=== PATIENT | male | born 1960 | race Caucasian/White ===

== ENCOUNTER 2023-10-10 17:37 | Outpatient (RCR) | payer OTHER, SELFPAY | END 2023-10-10 23:59 | disposition home or self-care (01) | LOC: RPT 17:37 | PROVIDERS: ATTENDING PHYSICIAN Orthopaedic Surgery; FAMILY PHYSICIAN Family Medicine | DX: Z47.1 Aftercare following joint replacement surgery (principal); Z73.6 Limitation of activities due to disability; R26.2 Difficulty in walking, not elsewhere classified; M62.81 Muscle weakness (generalized); M25.551 Pain in right hip; R26.89 Other abnormalities of gait and mobility; Z96.641 Presence of right artificial hip joint | CPT/HCPCS: 97010; 97110; 97112; 97116; 97140; 97162; 97530 ==

== ENCOUNTER 2023-11-08 06:44 | Outpatient (RCR) | payer OTHER, SELFPAY | END 2023-11-08 23:59 | disposition home or self-care (01) | LOC: RPT 06:44 | PROVIDERS: ATTENDING PHYSICIAN Orthopaedic Surgery; FAMILY PHYSICIAN Family Medicine | DX: Z47.1 Aftercare following joint replacement surgery (principal); Z73.6 Limitation of activities due to disability; R26.2 Difficulty in walking, not elsewhere classified; M62.81 Muscle weakness (generalized); M25.551 Pain in right hip; R26.89 Other abnormalities of gait and mobility; Z96.641 Presence of right artificial hip joint | CPT/HCPCS: 97110; 97112; 97530 ==

== ENCOUNTER 2023-11-27 14:07 | Outpatient (RCR) | payer OTHER, SELFPAY | END 2023-11-28 15:43 | disposition home or self-care (01) | LOC: RPT 14:07 | PROVIDERS: ATTENDING PHYSICIAN Orthopaedic Surgery; FAMILY PHYSICIAN Family Medicine | DX: Z47.1 Aftercare following joint replacement surgery (principal); Z73.6 Limitation of activities due to disability; R26.2 Difficulty in walking, not elsewhere classified; M62.81 Muscle weakness (generalized); M25.551 Pain in right hip; Z96.641 Presence of right artificial hip joint | CPT/HCPCS: 97110; 97112; 97530 ==

== ENCOUNTER → 2024-01-07 06:23 | Day surgery (SDC) | payer OTHER, SELFPAY | LOC: GI 06:23 | PROVIDERS: ATTENDING PHYSICIAN Internal Medicine Gastroenterology | DX: Z12.11 Encounter for screening for malignant neoplasm of colon (principal); Z86.010 Personal history of colon polyps; K64.8 Other hemorrhoids; K57.30 Diverticulosis of large intestine without perforation or abscess without bleeding; D12.2 Benign neoplasm of ascending colon; D12.3 Benign neoplasm of transverse colon | CPT/HCPCS: 45385; 88305 ==

== ENCOUNTER 2024-04-08 09:15 | Outpatient (RCR) | payer OTHER, SELFPAY | END 2024-04-08 23:59 | disposition home or self-care (01) | LOC: RPT 09:15 | PROVIDERS: ATTENDING PHYSICIAN Orthopaedic Surgery; FAMILY PHYSICIAN Family Medicine | DX: M76.892 Other specified enthesopathies of left lower limb, excluding foot (principal) | CPT/HCPCS: 97110; 97140; 97162 ==

== ENCOUNTER 2024-04-22 06:29 | Outpatient (RCR) | payer OTHER, SELFPAY | END 2024-04-22 23:59 | disposition home or self-care (01) | LOC: RPT 06:29 | PROVIDERS: ATTENDING PHYSICIAN Orthopaedic Surgery; FAMILY PHYSICIAN Family Medicine | DX: M76.892 Other specified enthesopathies of left lower limb, excluding foot (principal); M25.562 Pain in left knee; R26.2 Difficulty in walking, not elsewhere classified; Z73.6 Limitation of activities due to disability; M54.9 Dorsalgia, unspecified | CPT/HCPCS: 97110; 97140 ==

== ENCOUNTER → 2024-05-15 16:08 | Outpatient (REF) | payer OTHER, SELFPAY ==
[2024-05-15 16:59] LABS: Erythrocyte Sed Rate 9 mm/hour (0-20)
[2024-05-15 17:15] LABS: C-Reactive Protein < 5.00 mg/L (0.0-10.00)
== END ==
LOC: REG 16:08
PROVIDERS: ATTENDING PHYSICIAN Orthopaedic Surgery; FAMILY PHYSICIAN Family Medicine
DX: Z96.652 Presence of left artificial knee joint (principal)
CPT/HCPCS: 36415; 85652; 86140

== ENCOUNTER 2024-05-27 14:56 | Outpatient (RCR) | payer OTHER, SELFPAY | END 2024-05-27 23:59 | disposition home or self-care (01) | LOC: RPT 14:56 | PROVIDERS: ATTENDING PHYSICIAN Orthopaedic Surgery; FAMILY PHYSICIAN Family Medicine | DX: M76.892 Other specified enthesopathies of left lower limb, excluding foot (principal); Z73.6 Limitation of activities due to disability | CPT/HCPCS: 97110; 97140 ==

== ENCOUNTER → 2025-09-02 10:12 | Outpatient (REF) | payer OTHER, SELFPAY | LOC: HWRAD 10:12 | PROVIDERS: ATTENDING PHYSICIAN Student in an Organized Health Care Education/Training Program; FAMILY PHYSICIAN Family Medicine | DX: R43.8 Other disturbances of smell and taste (principal) | CPT/HCPCS: 70486 ==